=== PATIENT | male | born 1970 | race Caucasian/White ===

== ENCOUNTER 2017-02-12 08:04 | Day surgery (SDC) | payer MEDICARE, OTHER ==
--- NOTE | ~2017-02-12 | EGD ---
EGD REPORT [facility] [address] [place] [address] NAME: ALIZE NAYAK JR : 74 STATUS : [facility] PAT#: [id number] AGE: 46 ADM/REG DATE : 02/12/17 MR#: [id number] REPORT SERV DATE: 02/12/17 DICTATED BY: MARK BYRNES DATE: 02/12/17 REPORT STATUS : Draft TRANSCRIBED BY: [facility] DATE: 02/12/17 Endoscopy Center Patient Name: Alize Nayak Date of : 1970 Attending MD: MARK BYRNES MD Procedure Date No Time: 02/12/2017 Procedure: Upper GI endoscopy Indications: Generalized abdominal pain, Dysphagia, Gastro-esophageal reflux disease Referring MD: ANIRUDH VARELA Medicines: Propofol per Anesthesia Complications: No immediate complications. Procedure: After obtaining informed consent, the endoscope was passed under direct vision. Throughout the procedure, the patient's blood pressure, pulse, and oxygen saturations were monitored continuously. The GIF [id number] was introduced through the mouth, and advanced to the third part of duodenum. The upper GI endoscopy was accomplished without difficulty. The patient tolerated the procedure well. Findings: The examined esophagus was normal. There is no endoscopic evidence of varices in the lower third of the esophagus. A benign-appearing, intrinsic mild stenosis was found in the upper third of the esophagus and was traversed. A guidewire was placed and the scope was withdrawn. Dilation was performed with a Savary dilator with mild resistance at 60 Fr. The esophagus looked satisfactory post dilation A small hiatus hernia was present. Seen on retroflexion, done prior to dilation Diffuse mild inflammation characterized by congestion (edema) and erythema was found in the entire examined stomach. Biopsies were taken with a cold forceps for Helicobacter pylori testing. Localized mild inflammation characterized by congestion (edema) and erythema was found in the duodenal bulb. Biopsies were taken with a cold forceps for evaluation of celiac disease. And giardia, whipple's disease, and enteritis The 2nd part of the duodenum and 3rd part of the duodenum were normal. Biopsies were taken with a cold forceps for evaluation of celiac disease. The esophagus looked satisfactory post dilation Impression: - Normal esophagus. - Benign-appearing esophageal stricture. Dilated. - Hiatus hernia. EGD REPORT [address] [place]. [address] NAME: ALIZE NAYAK JR : 74 STATUS : [facility] PAT#: [id number] AGE: 46 ADM/REG DATE : 02/12/17 MR#: [id number] REPORT SERV DATE: 02/12/17 DICTATED BY: MARK BYRNES DATE: 02/12/17 REPORT STATUS : Draft TRANSCRIBED BY: [employer] DATE: 02/12/17 - Gastritis. Biopsied. - Duodenitis. Biopsied. - Normal 2nd part of the duodenum and 3rd part of the duodenum. Biopsied. Recommendation: - Patient has a contact number available for emergencies. The signs and symptoms of potential delayed complications were discussed with the patient. Return to normal activities tomorrow. Written discharge instructions were provided to the patient. - diet is clear liquid today, full liquid tomorrow, soft mushy food the next day, and resume usual diet the day after that. - Continue present medications. - Use Protonix (pantoprazole) 40 mg PO BID. - take 30-60 minutes before breakfast and supper - Use Zantac (ranitidine) 300 mg PO daily. - Take at bedtime - Return to my office as previously scheduled. - Discharge patient to home. Procedure Code(s): --- Professional --- 14508, Esophagogastroduodenoscopy, flexible, transoral; with insertion of guide wire followed by passage of dilator(s) through esophagus over guide wire 62891, Esophagogastroduodenoscopy, flexible, transoral; with biopsy, single or multiple Diagnosis Code(s): --- Professional --- K22.2, Esophageal obstruction K44.9, Diaphragmatic hernia without obstruction or gangrene K29.70, Gastritis, unspecified, without bleeding K29.80, Duodenitis without bleeding R10.84, Generalized abdominal pain R13.10, Dysphagia, unspecified K21.9, Gastro-esophageal reflux disease without esophagitis CPT copyright 2013 [employer]. All rights reserved. The codes documented in this report are preliminary and upon manager company review may be revised to meet current compliance requirements. Mark Byrnes MD EGD REPORT [facility] [address] [place]. [address] NAME: ALIZE NAYAK JR : 74 STATUS : [facility] PAT#: [id number] AGE: 46 ADM/REG DATE : 02/12/17 MR#: [id number] REPORT SERV DATE: 02/12/17 DICTATED BY: MARK BYRNES DATE: 02/12/17 REPORT STATUS : Draft TRANSCRIBED BY: [employer] DATE: 02/12/17 MARK BYRNES MD 02/12/2017 11:48 AM This report has been signed electronically. Number of Addenda: 0 Note Initiated On: 02/12/2017 8:10 AM Scope Withdrawal Time 0 hours 0 minutes [address] [place] [address] [place] [id number]
[~2017-02-12 08:04] MED LIST: ADVIL PO; AMARYL4 PO; AMB10 PO; ATEN25 PO; B121000P IM; BEN25 PO; CONSTULOSE PO; FLOMAX4 PO; FOLIC PO; FORTAMET500 MG PO; GLUCOPHAGE1000 MG PO; LORCET PO; MAX25 PO; MOBIC15 MG PO; NEUR100 PO; NEUR600 PO; NOR10 PO; NORCO1 TAB PO; NORV5 PO; OXYCOD PO; OXYCON10 PO; PERCOCET1 TA4 PO; PR25 PO; PRIM50B PO; PRIN20 PO; PROTONIX PO; RANITIDINE300 MG PO; SUCR PO; TESTERONE; TOUJEO SC; TRADJENTA5 MG PO; VITAMIN B12; XANAX1 MG PO; XIFAXAN550 MG PO; ZOCOR40 PO
[2017-02-12 11:47] LABS: ALBUMIN 3.3 G/DL (3.5-5.0); DIRECT BILIRUBIN 0.2 MG/DL (0.0-0.4); INDIRECT BILIRUBIN(NOT ORDER) 0.7 MG/DL (0.1-0.9); TOTAL BILIRUBIN 0.9 MG/DL (0-1.2)
== END 2017-02-12 23:59 | disposition home or self-care (01) ==
LOC: DMU 08:04
PROVIDERS: Internal Medicine Gastroenterology
PROC: 0DB98ZX Excision of Duodenum, Via Natural or Artificial Opening Endoscopic, Diagnostic (ICD-10-PCS; 2017-02-12)
PROC: 0DB68ZX Excision of Stomach, Via Natural or Artificial Opening Endoscopic, Diagnostic (ICD-10-PCS; 2017-02-12)
PROC: 0D748ZZ Dilation of Esophagogastric Junction, Via Natural or Artificial Opening Endoscopic (ICD-10-PCS; principal; 2017-02-12 09:30)
DX: K29.50 Unspecified chronic gastritis without bleeding (principal); K44.9 Diaphragmatic hernia without obstruction or gangrene; K29.80 Duodenitis without bleeding; K22.2 Esophageal obstruction; E11.9 Type 2 diabetes mellitus without complications; G43.909 Migraine, unspecified, not intractable, without status migrainosus; G47.33 Obstructive sleep apnea (adult) (pediatric); I10 Essential (primary) hypertension; K74.60 Unspecified cirrhosis of liver; G62.9 Polyneuropathy, unspecified; Z88.8 Allergy status to other drugs, medicaments and biological substances; Z88.5 Allergy status to narcotic agent
CPT/HCPCS: 80076; 82962; 82977; 88305; A9270-GY